=== PATIENT | male | born 1985 | race Two or more races ===

== ENCOUNTER 2019-07-02 19:20 | Emergency (ER) | payer SELFPAY ==
[2019-07-02 21:10] VITALS: BP 116/72
[2019-07-02] MEDS ORDERED: ACETAMINOPHEN/CODEINE#3 (300/30mg) TAB PO ONE (21:45)
== END 2019-07-02 21:59 | disposition home or self-care (01) ==
LOC: ER 19:20
DX: M54.5 Low back pain (principal)
CPT/HCPCS: 72131